=== PATIENT | female | born 1955 | race Caucasian/White ===

== ENCOUNTER 2017-09-18 16:48 | Emergency (ER) | payer OTHER, MEDICARE, MEDICAID ==
[2017-09-18] MEDS ORDERED: Sodium Chloride 0.9% 10 ML Syringe FLUSH PRN (16:57)
[2017-09-18] MEDS ORDERED: Ondansetron 4 MG/2 ML SDV IVPUSH ONE (16:57)
[2017-09-18] MEDS ORDERED: HYDROmorphone 0.5 MG/0.5 ML Syringe IVPUSH ONE (16:58)
--- NOTE | 2017-09-18 17:24 | CT ---
CT cervical spine Technique: Multiple axial sections were obtained from above C1 inferiorly to the top of T2. Reconstructed sagittal and coronal images were reviewed. Comparison: No previous cervical spine imaging is available. Findings: C2-C3: Mild degenerative change is seen between the dens and anterior arch of C1. C5-C6: Mild anterior osteophytes are seen. C6-C7: Disc space narrowing is noted. Mild anterior osteophytes are seen. Scattered degenerative change is seen within the uncovertebral joints. Vertebral bodies and posterior arches are intact with no fracture being seen. Neural foramina are patent. No central canal stenosis is seen. No abnormal subluxation is seen. Impression: 1. Mild degenerative change. 2. No acute abnormality is seen on CT study of the cervical spine. Diagnostic code #2
--- NOTE | 2017-09-18 17:24 | CT ---
Head CT Technique: Multiple axial sections through the brain were obtained. Intravenous contrast was not utilized. Comparison: Prior head CT study of 12/01/16. Findings: Ventricles along with basal cisterns and sulci over the convexities are mildly prominent. Minimal diminished density is noted within the periventricular white matter compatible with small vessel ischemic demyelination change. Slightly prominent sulci are seen within the right temporal lobe as an interval change from prior study most likely representing an interval small cortical infarct. No other abnormal parenchymal densities are seen. No evidence of intracranial hemorrhage. No midline shift or mass effect is seen. Bone window settings were reviewed which shows the visualized sinuses to appear clear. No acute calvarial abnormality is seen. Soft tissue swelling is noted within the left temporal and parietal scalp. Impression: 1. Soft tissue swelling within the left parietal and temporal scalp. 2. Senescent change as noted above. 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 3. No acute intracranial abnormality is seen. Diagnostic code #3
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
[2017-09-18] MEDS ORDERED: Acetaminophen/HYDROcodone 325-10 MG Tab PO ONE (18:58)
[2017-09-18 19:58] VITALS: BP 133/80
--- NOTE | 2017-09-19 07:07 | CR ---
Chest: Frontal view of the chest was obtained. Comparison: No prior study. Heart size at the upper limits of normal. Mild tortuosity of the thoracic aorta is seen. Lungs are clear. Surgical clips are seen within the left axillary region. Slight degenerative endplate spurring is noted within the spine with mild scoliosis. Impression: 1. Incidental findings. Nothing acute is appreciated on frontal chest x-ray. Diagnostic code #2
--- NOTE | 2017-09-19 07:07 | CR ---
Left shoulder: Three views of the left shoulder were obtained. Comparison: No previous study. Surgical clips are seen within the left axillary region. Glenohumeral joint and acromioclavicular joint appear within normal limits. No acute fracture or other bony abnormality is seen. Impression: 1. Incidental findings. Nothing acute is identified on three-view left shoulder study. Diagnostic code #2
== END 2017-09-18 19:05 | disposition home or self-care (01) ==
LOC: JD.ED 16:48
DX: S16.1XXA Strain of muscle, fascia and tendon at neck level, initial encounter (principal); S00.03XA Contusion of scalp, initial encounter; I12.0 Hypertensive chronic kidney disease with stage 5 chronic kidney disease or end stage renal disease; E10.22 Type 1 diabetes mellitus with diabetic chronic kidney disease; N18.6 End stage renal disease; Z79.899 Other long term (current) drug therapy; Z79.82 Long term (current) use of aspirin; Z79.01 Long term (current) use of anticoagulants; Z99.2 Dependence on renal dialysis; V89.2XXA Person injured in unspecified motor-vehicle accident, traffic, initial encounter
CPT/HCPCS: 36415; 70450; 71010; 72125; 73030; 80053; 83690; 85025; 99285; A9270; J7050; 99284

== ENCOUNTER 2018-10-01 09:57 | Emergency (ER) | payer MEDICARE, MEDICAID ==
[2018-10-01 10:12] VITALS: BP 187/81
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
--- NOTE | 2018-10-01 11:46 | CR ---
Left wrist: Four views of the left wrist are obtained. Nondisplaced fracture is identified within the distal radius in a horizontal direction through the metaphysis. Additional vertical fracture line is seen to extend into a small portion of the articular margin along the ulnar side of the radius. Old ununited avulsion fracture within the ulnar styloid process is seen. Moderate degenerative change is noted with CMC joint of the thumb as well as joint space narrowing off the distal navicular bone. Vascular calcification and soft tissue swelling is noted. Bony structures are osteopenic. Impression: 1. Distal radial fracture as noted above. 2. Degenerative change, osteopenia and vascular calcification. Diagnostic code #3
== END 2018-10-01 14:35 ==
LOC: JD.ED 09:57
DX: S52.502A Unspecified fracture of the lower end of left radius, initial encounter for closed fracture (principal); I12.9 Hypertensive chronic kidney disease with stage 1 through stage 4 chronic kidney disease, or unspecified chronic kidney disease; N18.9 Chronic kidney disease, unspecified; E10.22 Type 1 diabetes mellitus with diabetic chronic kidney disease; Z99.2 Dependence on renal dialysis; Z79.82 Long term (current) use of aspirin; Z79.899 Other long term (current) drug therapy; W19.XXXA Unspecified fall, initial encounter
CPT/HCPCS: 29125; 36415; 73110-26-LT; 73110-LT; 80053; 85025; 99284; 99285-25

== ENCOUNTER 2018-10-08 16:34 | Observation (INO) | payer MEDICARE, MEDICAID ==
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
[2018-10-08] MEDS ORDERED: Sodium Chloride 0.9% 500 ML ONE (17:56)
[2018-10-08] MEDS ORDERED: Acetaminophen/HYDROcodone 325-5 MG Tab PO ONE (19:37)
[2018-10-08] MEDS ORDERED: LORazepam 2 MG/ML SDV IM ONE (19:39)
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
[2018-10-08] MEDS ORDERED: Acetaminophen 325 MG Tab PO PRN (21:47)
[2018-10-08] MEDS ORDERED: Acetaminophen/HYDROcodone 325-5 MG Tab PO PRN (21:47)
[2018-10-08] MEDS ORDERED: Ondansetron 4 MG Tab.DIS PO PRN ×2 (21:47→22:38)
[2018-10-08] MEDS ORDERED: Ondansetron 4 MG/2 ML SDV IV PRN (21:47)
[2018-10-08] MEDS ORDERED: Scopolamine 1.5 MG Transdermal Patch TRDERM PRN (22:35)
[2018-10-08] MEDS ORDERED: Morphine 2 MG/ML Syringe IVPUSH PRN (22:35)
[2018-10-08] MEDS ORDERED: oxyCODONE 5 MG Tab PO PRN (22:36)
[2018-10-08] MEDS ORDERED: Acetaminophen/Butalbital/Caffeine 325-50-40 MG Tab PO PRN (22:37)
[2018-10-08] MEDS ORDERED: Nitroglycerin 0.4 MG Tab.SL SL PRN (22:38)
[2018-10-08] MEDS ORDERED: traMADol 50 MG Tab PO PRN (22:38)
[2018-10-08] MEDS ORDERED: Zolpidem 10 MG Tab PO PRN (22:38)
[2018-10-08] MEDS ORDERED: Metoprolol Tartrate 5 MG/5 ML SDV IVPUSH PRN ×2 (22:40→22:54)
[2018-10-08] MEDS ORDERED: Rivaroxaban 10 MG Tab PO ONE (23:01)
--- NOTE | 2018-10-08 23:14 | PCM.SN ---
- Free Text/Narrative Note: Patient's heart rate was fluctuating from upper teens to 120s and went up as high as 140s before it came back down and lingers in the 130s. Her EKG shows atrial fibrillation with prolonged QT and a heart rate of 129. We will give her PRN low dose Lopressor and resume home Coreg. Xarelto 2.5 mg po BID for stroke prophylaxis
[2018-10-08] MEDS ORDERED: Sodium Chloride 0.9% 250 ML ONE (23:21)
[2018-10-08] MEDS ORDERED: Diltiazem 50 MG/10 ML SDV IVPUSH PRN (23:23)
[2018-10-08] MEDS ORDERED: Metoprolol Tartrate 50 MG Tab PO SCH (23:30)
[2018-10-08] MEDS ORDERED: cloNIDine 0.3 MG/Day Transdermal Patch TRDERM SCH (23:30)
[2018-10-08] MEDS: hydrALAZINE 20 MG/ML SDV IVPUSH PRN (23:40)
[2018-10-08] MEDS ORDERED: Sodium Chloride 0.9% 250 ML IV SCH (23:45)
[2018-10-09] MEDS: LORazepam 2 MG/ML SDV IVPUSH PRN ×3 (00:14→23:38)
[2018-10-09] MEDS: Metoprolol Tartrate 25 MG Tab PO SCH ×2 (00:42→11:25)
[2018-10-09] MEDS ORDERED: diphenhydrAMINE 50 MG/ML SDV IVPUSH ONE (01:11)
[2018-10-09] MEDS: Insulin Lispro 100 Unit/ML 3 ML KwikPen SUBCUT SCH ×2 (06:03→11:31)
[2018-10-09] MEDS: hydrALAZINE 20 MG/ML SDV IVPUSH PRN (06:31)
[2018-10-09] MEDS: Acetaminophen/HYDROcodone 325-5 MG Tab PO PRN ×3 (07:48→21:59)
[2018-10-09] MEDS ORDERED: Magnesium Oxide 400 MG Tab PO ONE (08:45)
[2018-10-09 08:59] VITALS: BP 148/61
[2018-10-09] MEDS ORDERED: Carvedilol 12.5 MG Tab PO SCH (09:00)
[2018-10-09] MEDS ORDERED: DULoxetine 30 MG Cap PO SCH (09:00)
[2018-10-09] MEDS ORDERED: Rivaroxaban 10 MG Tab PO SCH (09:00)
[2018-10-09] MEDS ORDERED: amLODIPine 10 MG Tab PO SCH (09:00)
[2018-10-09] MEDS ORDERED: Aspirin 81 MG Tab.EC PO SCH (09:00)
--- NOTE | 2018-10-09 12:57 | PCM.PN ---
- General Info Date of Service: 10/09/18 Admission Dx/Problem (Free Text): Admission Diagnosis/Problem Admission Diagnosis/Problem Failure to thrive in adult Subjective Update: Follow Up Functional Status: Reports: Pain Controlled, Tolerating Diet, Ambulating, Urinating. Denies: New Symptoms - Review of Systems General: Denies: Fever, Weakness, Fatigue, Malaise, Chills HEENT: Reports: No Symptoms Pulmonary: Denies: Shortness of Breath Cardiovascular: Denies: Chest Pain Gastrointestinal: Reports: Flatus. Denies: Abdominal Pain, Nausea, Vomiting Genitourinary: Reports: No Symptoms Musculoskeletal: Reports: No Symptoms. Denies: Other Skin: Reports: Bruising. Denies: Mottled, Pallor Neurological: Denies: Confusion, Difficulty Walking, Weakness, Gait Disturbance Psychiatric: Denies: Depression, Anxiety, Agitation, Hallucinations Systems Review Comment:: She has trouble with her heart rate and blood pressure last night. However she improved with rate control and antihypertensive medications. She has no complaints and this morning she elected to go on comfort measures in the presence of IDT staff, son and her [id number]. - Patient Data Vitals - Most Recent: Last Vital Signs Temp 36.7 C 10/09/18 02:52 Pulse 85 10/09/18 11:25 Resp 24 H 10/09/18 02:52 BP 148/61 H 10/09/18 11:25 Pulse Ox 97 10/08/18 21:21 Weight - Most Recent: 77.139 kg I&O - Last 24 Hours: Intake & Output 10/08/18 10/09/18 10/09/18 22:59 06:59 14:59 Intake Total 460 180 Output Total 175 Balance 285 180 Lab Results Last 24 Hours: Laboratory Results - last 24 hr 10/08/18 10/08/18 10/09/18 Range/Units 16:20 22:14 01:11 WBC (3.98-10.04) K/mm3 RBC (3.98-5.22) M/mm3 Hgb (11.2-15.7) gm/L Hct (34.1-44.9) % MCV (79.4-94.8) fl MCH (25.6-32.2) pg MCHC (32.2-35.5) g/dl RDW Std Deviation (36.4-46.3) fL Plt Count (182-369) K/mm3 MPV (9.4-12.3) fl Neut % (Auto) (34.0-71.1) % Lymph % (Auto) (19.3-51.7) % [place] % (Auto) (4.7-12.5) % Eos % (Auto) (0.7-5.8) Baso % (Auto) (0.1-1.2) % Neut # (Auto) (1.56-6.13) K/mm3 Lymph # (Auto) (1.18-3.74) K/mm3 [place] # (Auto) (0.24-0.36) K/mm3 Eos # (Auto) (0.04-0.36) K/mm3 Baso # (Auto) (0.01-0.08) K/mm3 Sodium (136-145) mEq/L Potassium (3.5-5.1) mEq/L Chloride (98-107) mEq/L Carbon Dioxide (21-32) mEq/L Anion Gap (5-15) BUN (7-18) mg/dL Creatinine (0.55-1.02) mg/dL Est Cr Clr Drug Dosing mL/min Estimated GFR (MDRD) (>60) mL/min BUN/Creatinine Ratio (14-18) Glucose (80-115) mg/dL POC Glucose 99 (80-115) mg/dL Calcium (8.5-10.1) mg/dL Magnesium (1.8-2.4) mg/dl MRSA (PCR) Negative Blood Type O POSITIVE Gel Antibody Screen Negative Crossmatch See Detail 10/09/18 10/09/18 10/09/18 Range/Units 05:33 05:33 05:57 WBC 9.64 (3.98-10.04) K/mm3 RBC 3.51 L (3.98-5.22) M/mm3 Hgb 10.6 L (11.2-15.7) gm/L Hct 31.7 L (34.1-44.9) % MCV 90.3 (79.4-94.8) fl MCH 30.2 (25.6-32.2) pg MCHC 33.4 (32.2-35.5) g/dl RDW Std Deviation 53.7 H (36.4-46.3) fL Plt Count 164 L (182-369) K/mm3 MPV 10.5 (9.4-12.3) fl Neut % (Auto) 67.9 (34.0-71.1) % Lymph % (Auto) 18.9 L (19.3-51.7) % [place] % (Auto) 10.3 (4.7-12.5) % Eos % (Auto) 2.4 (0.7-5.8) Baso % (Auto) 0.1 (0.1-1.2) % Neut # (Auto) 6.55 H (1.56-6.13) K/mm3 Lymph # (Auto) 1.82 (1.18-3.74) K/mm3 [place] # (Auto) 0.99 H (0.24-0.36) K/mm3 Eos # (Auto) 0.23 (0.04-0.36) K/mm3 Baso # (Auto) 0.01 (0.01-0.08) K/mm3 Sodium 142 (136-145) mEq/L Potassium 3.7 (3.5-5.1) mEq/L Chloride 106 (98-107) mEq/L Carbon Dioxide 25 (21-32) mEq/L Anion Gap 14.7 (5-15) BUN 77 H (7-18) mg/dL Creatinine 7.5 H (0.55-1.02) mg/dL Est Cr Clr Drug Dosing 6.73 mL/min Estimated GFR (MDRD) 5 (>60) mL/min BUN/Creatinine Ratio 10.3 L (14-18) Glucose 102 (80-115) mg/dL POC Glucose 92 (80-115) mg/dL Calcium 8.7 (8.5-10.1) mg/dL Magnesium 1.5 L (1.8-2.4) mg/dl MRSA (PCR) Blood Type Gel Antibody Screen Crossmatch Med Orders - Current: Current Medications Acetaminophen (Tylenol) 650 mg PO Q4H PRN PRN Reason: Pain (Mild 1-3)/fever Acetaminophen/Butalbital/Caffeine (Fioricet 325-50-40 Mg) 1 tab PO Q6H PRN PRN Reason: Headache/Pain Hydrocodone Bitart/Acetaminophen ([place] 325-5 Mg) 1 tab PO Q6H PRN PRN Reason: Pain (moderate 4-6) Last Admin: 10/09/18 07:48 Dose: 1 tab Amlodipine Besylate (Norvasc) 10 mg PO DAILY [facility] Last Admin: 10/09/18 08:05 Dose: 10 mg Apixaban (Eliquis) 2.5 mg PO BID [facility] Aspirin (Halfprin) 81 mg PO DAILY [facility] Last Admin: 10/09/18 08:06 Dose: 81 mg Clonidine HCl (Catapres-Tts 3) 0.3 mg TRDERM Q7D [facility] Last Admin: 10/09/18 00:00 Dose: 0.3 mg Diltiazem HCl (Cardizem) 5 mg IVPUSH Q4H PRN PRN Reason: Tachycardia Last Admin: 10/09/18 00:30 Dose: 5 mg Duloxetine HCl (Cymbalta) 30 mg PO DAILY [facility] Hydralazine HCl (Apresoline) 20 mg IVPUSH Q4H PRN PRN Reason: Hypertension Last Admin: 10/09/18 06:31 Dose: 20 mg Insulin Human Lispro (Humalog) 0 unit SUBCUT QIDACANDBED [facility]; Protocol Last Admin: 10/09/18 11:31 Dose: Not Given Lorazepam (Ativan) 0.25 mg IVPUSH Q4H PRN; Protocol PRN Reason: Anxiety Last Admin: 10/09/18 00:14 Dose: 0.25 mg Magnesium Sulfate (Pharmacy To Dose - Magnesium Replacement) 1 dose .XX ASDIRECTED [facility] Metoprolol Tartrate (Lopressor) 2.5 mg IVPUSH Q4H PRN PRN Reason: Tachycardia Last Admin: 10/08/18 23:06 Dose: 2.5 mg Metoprolol Tartrate (Lopressor) 25 mg PO Q12H [facility] Last Admin: 10/09/18 11:25 Dose: 25 mg Miscellaneous Information (Remove Patch) 1 ea TRDERM Q72H [facility] Miscellaneous Information (Remove Patch) 1 ea TRDERM Q7D [facility] Morphine Sulfate (Morphine) 0.5 mg IVPUSH Q4H PRN PRN Reason: Dyspnea/CP/Pain Last Admin: 10/09/18 00:05 Dose: 0.5 mg Nitroglycerin (Nitrostat) 0.4 mg SL ASDIRECTED PRN PRN Reason: Chest Pain Ondansetron HCl (Zofran Odt) 4 mg PO Q4H PRN PRN Reason: nausea, able to take PO Ondansetron HCl (Zofran) 4 mg IV Q4H PRN PRN Reason: Nausea/Vomiting Last Admin: 10/09/18 10:43 Dose: 4 mg Potassium Chloride (Pharmacy To Dose - Potassium Replacement) 1 dose .XX ASDIRECTED [facility] Scopolamine (Transderm-Scop) 1.5 mg TRDERM Q72H PRN PRN Reason: Nausea/Vomiting Tramadol HCl (Ultram) 50 mg PO BID PRN PRN Reason: Pain Zolpidem Tartrate (Ambien) 10 mg PO BEDTIME PRN PRN Reason: Sleep Discontinued Medications Hydrocodone Bitart/Acetaminophen ([place] 325-5 Mg) 1 tab PO ONETIME ONE Stop: 10/08/18 19:38 Last Admin: 10/08/18 19:46 Dose: 1 tab Hydrocodone Bitart/Acetaminophen ([place] 325-5 Mg) 1 tab PO Q4H PRN PRN Reason: Pain (moderate 4-6) Last Admin: 10/08/18 22:17 Dose: 1 tab Carvedilol (Coreg) 12.5 mg PO BID [facility] Diphenhydramine HCl (Benadryl) 25 mg IVPUSH ONETIME ONE Stop: 10/09/18 01:12 Last Admin: 10/09/18 01:23 Dose: 25 mg Sodium Chloride (Normal Saline) Confirm Administered Dose 500 mls @ as directed .ROUTE .STK-MED ONE Stop: 10/08/18 17:57 Last Admin: 10/08/18 18:26 Dose: Not Given Sodium Chloride (Normal Saline) Confirm Administered Dose 250 mls @ as directed .ROUTE .STK-MED ONE Stop: 10/08/18 23:22 Last Admin: 10/09/18 00:20 Dose: Not Given Sodium Chloride (Normal Saline) 250 mls @ 100 mls/hr IV ASDIRECTED [facility] Last Admin: 10/08/18 23:30 Dose: 100 mls/hr Lorazepam (Ativan) 0.5 mg IM ONETIME ONE Stop: 10/08/18 19:40 Last Admin: 10/08/18 19:46 Dose: 0.5 mg Magnesium Oxide (Magnesium Oxide) 800 mg PO ONETIME ONE Stop: 10/09/18 08:46 Last Admin: 10/09/18 11:25 Dose: 800 mg Metoprolol Tartrate (Lopressor) 5 mg IVPUSH Q4H PRN PRN Reason: Tachycardia Metoprolol Tartrate (Lopressor) 50 mg PO Q12H [facility] Last Admin: 10/09/18 01:03 Dose: Not Given Ondansetron HCl (Zofran Odt) 4 mg PO Q6H PRN PRN Reason: Nausea Oxycodone HCl (Oxycodone) 5 mg PO Q4H PRN PRN Reason: Pain Rivaroxaban (Xarelto) 2.5 mg PO ONETIME ONE Stop: 10/08/18 23:02 Last Admin: 10/08/18 23:45 Dose: 2.5 mg Rivaroxaban (Xarelto) 2.5 mg PO BID [facility] Last Admin: 10/09/18 08:05 Dose: 2.5 mg - Exam General: Alert, Oriented, Cooperative, No Acute Distress HEENT: Pupils Equal, Pupils Reactive, EOMI, Mucous Membr. Moist/[place], Other ( facial bruises) Neck: Supple Lungs: Normal Respiratory Effort, Decreased Breath Sounds Cardiovascular: Irregular Rhythm GI/Abdominal Exam: Normal Bowel Sounds, Soft, Non-Tender, No Organomegaly, No Distention, No Abnormal Bruit, No Mass (Female) Exam: Deferred Back Exam: Normal Inspection, Decreased Range of Motion Extremities: Normal Inspection, Normal Range of Motion, Non-Tender, No Pedal Edema, Normal Capillary Refill Peripheral Pulses: 2+: Dorsalis Pedis (L), Dorsalis Pedis (R) Skin: Warm, Dry, Intact Neurological: No New Focal Deficit Psy/Mental Status: Alert, Normal Affect, Normal Mood - Problem List Review Problem List Initiated/Reviewed/Updated: Yes - My Orders Last 24 Hours: My Active Orders 10/15/18 23:30 Remove Patch 1 ea TRDERM Q7D 10/08/18 22:34 LORazepam [Ativan] 0.25 mg IVPUSH Q4H PRN 10/08/18 22:35 Morphine 0.5 mg IVPUSH Q4H PRN Scopolamine [Transderm-Scop] 1.5 mg TRDERM Q72H PRN 10/08/18 22:37 Acetaminophen/Butalbital/Caff [Fioricet 325-50-40 MG] 1 tab PO Q6H PRN 10/08/18 22:38 Nitroglycerin [Nitrostat] 0.4 mg SL ASDIRECTED PRN Zolpidem [Ambien] 10 mg PO BEDTIME PRN traMADol [Ultram] 50 mg PO BID PRN 10/08/18 22:40 hydrALAZINE [Apresoline] 20 mg IVPUSH Q4H PRN 10/08/18 22:43 Acetaminophen/HYDROcodone [[place] 325-5 MG] 1 tab PO Q6H PRN 10/08/18 22:45 Pharmacy to Dose - Magnesium R [Pharmacy to Dose - Magnesium Replacement] 1 dose .XX ASDIRECTED Pharmacy to Dose - Potassium R [Pharmacy to Dose - Potassium Replacement] 1 dose .XX ASDIRECTED 10/08/18 22:54 Metoprolol Tartrate [Lopressor] 2.5 mg IVPUSH Q4H PRN 10/08/18 22:59 EKG 12 Lead [EK] Stat 10/08/18 23:15 Accu Check [Blood Glucose Check, Bedside] [RC] QIDACANDBED 10/08/18 23:23 Diltiazem [Cardizem] 5 mg IVPUSH Q4H PRN 10/08/18 23:30 Metoprolol Tartrate [Lopressor] 25 mg PO Q12H cloNIDine [Catapres-TTS 3] 0.3 mg TRDERM Q7D 10/09/18 07:00 Insulin Lispro [HumaLOG] See Protocol SUBCUT QIDACANDBED 10/09/18 09:00 Aspirin [Halfprin] 81 mg PO DAILY DULoxetine [Cymbalta] 30 mg PO DAILY amLODIPine [Norvasc] 10 mg PO DAILY 10/09/18 12:03 Code Status [Resuscitation Status] Routine 10/09/18 21:00 Apixaban [Eliquis] 2.5 mg PO BID 10/09/18 Breakfast Renal Dialysis Diet [DIET] 10/11/18 23:00 Remove Patch 1 ea TRDERM Q72H - Plan Plan:: I/P: Acute: Admission for End of Life Care * Expressed wishes to d/c dialysis and understood she will w/o dialysis * Rescinded code status to DNR/DNI before her son and [id number] * Comfort Measures and PRN Medications for Symptomatic Control * Hospice/Palliative Care for placement Secondary Diagnoses: Anemia * Acute on Chronic * Initial labs done by Dr. Grijalva at [facility] earlier today--> Hgb 7.0 * Then seen in ED and discharged to dialysis--> Repeat Hgb 6.2 * Returned to ED--> Hgb 6.8 * Received 2U blood in ED * Replenish with PRBCs PRN End Stage CKD on Dialysis * Initial labs done by Dr. Grijalva at [facility] earlier today: * Cr 12.4, and BUN 138 * Pt does not want to continue dialysis * Per ED--> Ultimately, the plan per SW is to have her go to [facility] ( this may not be for around 1 - 2 weeks) and she will need to continue dialysis until she can be admitted to comfort cares there. Family agrees with this plan. * Consult SW * Does not want dialysis no more Failure to Thrive * Unable to take care of herself per son Chronic: Medical Non-compliance * Multiple visits to ER * She signs out AMA when she is feeling better * Non-compliant with dialysis * Not taking her medications per her son End stage CKD on dialysis with left arm fistula HTN HLD Cholelithiasis Osteoarthritis DM1 Overweight Depression Chronic headaches Cataract Anemia Plan: She is fairly stable Other orders as indicated above Discontinue Routine AM labs and Home Medications No more vitals and telemetry She can eat whatever she wants CM/SW for discharge planning DVT Prophylaxis/GI Prophylaxis Code Status: DNR/DNI/Comfort Measures PCP: Dr. Grijalva Discharge pending placement
[2018-10-09] MEDS ORDERED: LORazepam 2 MG/ML SDV IVPUSH ONE ×2 (18:08→19:14)
[2018-10-09] MEDS ORDERED: diphenhydrAMINE 50 MG/ML SDV IVPUSH PRN (18:17)
[2018-10-09] MEDS: Morphine 2 MG/ML Syringe IVPUSH PRN ×2 (19:33→23:35)
[2018-10-09] MEDS ORDERED: Apixaban 5 MG Tab PO SCH (21:00)
[2018-10-10] MEDS: Morphine 2 MG/ML Syringe IVPUSH PRN (03:39)
[2018-10-10] MEDS: LORazepam 2 MG/ML SDV IVPUSH PRN (03:42)
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
== END 2018-10-10 11:38 ==
LOC: JD.ED 16:34 → JD.MS 20:41
PROVIDERS: ADMIT Internal Medicine; ATTEND Internal Medicine
DX: I12.0 Hypertensive chronic kidney disease with stage 5 chronic kidney disease or end stage renal disease (principal); D63.1 Anemia in chronic kidney disease; E10.22 Type 1 diabetes mellitus with diabetic chronic kidney disease; N18.6 End stage renal disease; Z99.2 Dependence on renal dialysis; Z91.15 Patient's noncompliance with renal dialysis; Z51.5 Encounter for palliative care; R62.7 Adult failure to thrive; E10.621 Type 1 diabetes mellitus with foot ulcer; L97.529 Non-pressure chronic ulcer of other part of left foot with unspecified severity; N17.9 Acute kidney failure, unspecified; E83.42 Hypomagnesemia; E78.5 Hyperlipidemia, unspecified; E66.9 Obesity, unspecified; Z68.28 Body mass index [BMI] 28.0-28.9, adult; M19.90 Unspecified osteoarthritis, unspecified site; F32.9 Major depressive disorder, single episode, unspecified; R51 Headache; Z79.899 Other long term (current) drug therapy
CPT/HCPCS: 36415; 36430; 80048; 82962; 83735; 85025; 86850; 86900; 86901; 86922; 87641; 93005; A9270; J0360; J1200; J2060; J2270; J2405; J3490; J7050; P9016